=== PATIENT | male | born 1975 ===

== ENCOUNTER 2020-10-02 07:17 | Day surgery (SDC) | payer OTHER ==
[~2020-10-02] VITALS: Ht 182.9 cm; Wt 133.4 kg
[~2020-10-02 07:17] MED LIST: ALVESCO80 MCG/ACT IN; ATORVASTATIN CA10 MG PO; BAYER ASPIRIN E81 MG PO; CHOLESTEROL; INHALER; XOPENEX HF45 MCG/ACT IN
[2020-10-02 13:20] VITALS: BP 118/72
== END 2020-10-02 13:18 | DRG 352 ==
LOC: ORM 07:17
PROVIDERS: ATTEND Surgery
PROC: 0YU64JZ Supplement Left Inguinal Region with Synthetic Substitute, Percutaneous Endoscopic Approach (ICD-10-PCS; principal; 2020-10-02)
DX: K40.90 Unilateral inguinal hernia, without obstruction or gangrene, not specified as recurrent (principal); N50.3 Cyst of epididymis; J45.909 Unspecified asthma, uncomplicated; Z20.828 Contact with and (suspected) exposure to other viral communicable diseases
CPT/HCPCS: C1781; J0131; J1100

== ENCOUNTER 2021-08-22 09:25 | Day surgery (SDC) | payer OTHER ==
[~2021-08-22] VITALS: Ht 182.9 cm; Wt 127.0 kg
[2021-08-22 12:21] VITALS: BP 97/49
== END 2021-08-22 12:15 | DRG 392 ==
LOC: ENDO 09:25 → ORM 12:00 → ENDO 12:15 → ORM 12:35
PROVIDERS: ATTEND Surgery
PROC: 0DJD8ZZ Inspection of Lower Intestinal Tract, Via Natural or Artificial Opening Endoscopic (ICD-10-PCS; principal; 2021-08-22)
DX: R10.32 Left lower quadrant pain (principal); N50.3 Cyst of epididymis; J45.909 Unspecified asthma, uncomplicated